=== PATIENT | female | born 1985 | race Caucasian/White ===

== ENCOUNTER → 2019-05-04 | Outpatient (CLI) | payer BC ==
[2019-05-04 16:30] VITALS: BP 131/84; PULSE 90; RESP 16; TEMP 99; BMI 46.0
--- NOTE | 2019-05-04 17:32 | P.HPBAR ---
Bariatric H&P - History & Physicial H&P Date: 05/04/19 History & Physicial: Visit/CC: Initial Patient initial contact: Initial weight: 117.934 kg Initial weight in pounds: 260.00 Height: 5 ft 3 in Initial BMI: 46.0 Last weight: Current weight: 117.934 kg Current weight in pounds: 260.00 Current BMI: 46.0 [place] body weight (based on NIH guidelines): 52.163 kg Excess body weight loss: 0.0% The patient is a 34 year-old F who presents for Bariatric Assessment. She is looking into the sleeve gastrectomy. She has family history of family morbid obesity. Her highest weight is present. She has tried [employer], [place], advocare, plexus, [employer], [employer], [employer] [place]. Most weight loss 50 pounds from weight watchers. She has been dieting from High school. She did idealu. She lost 30 pounds. She spent $1500 pounds. Start tracking foods. She reports lower back and hip pain. She has ankle and knee pain. She is not on blood pressure medications. She has minimal gastroesophageal reflux disease. She still has her gallbladder. No stomach cancer. No esophageal cancer. No history of blood clots. Dad had blood clots DVT in arm. She has easy bruising. She does not take a MVI daily. No chronic diarrhea. Her sister had gallbladder problems. She has right shoulder pain. She has troubles with eating lettuce. No food allergies. PLAN: 1. She needs 7 months. Past Medical History History of Any Multi-Drug Resistant Organisms: None Reported Past Surgical History: Section Additional Past Surgical History / Comment(s): x3 2011, 2013,20 17) Past Anesthesia/Blood Transfusion Reactions: Motion Sickness, Postoperative Nausea & Vomiting (PONV) Smoking Status: Never smoker - Past Family History Father Family Medical History: Hyperlipidemia, Hypertension Mother Family Medical History: No Reported History Surgical - Exam Vital Signs Temp Pulse Resp BP 99 F 90 16 131/84 05/04/19 16:27 05/04/19 16:27 05/04/19 16:27 05/04/19 16:27 Bariatric Checklist Checklist: Plan: Checklist: EGD: 1. Hiatal hernia: 2. H. Pylori: HgbA1c: Vitamin D: Smoking: Never smoker Primary care physician referral: N/A Psychiatry clearance: Cardiology clearance: Sleep study: Diet journal: VTE risk score: VTE risk level: Rehab needs at discharge:
== END | disposition home or self-care (01) ==
LOC: BARWHC3 15:45 → EDBD 16:00 → EDAGE 16:00
PROVIDERS: ATTEND Surgery Plastic and Reconstructive Surgery
DX: E66.01 Morbid (severe) obesity due to excess calories (principal); K21.9 Gastro-esophageal reflux disease without esophagitis; M25.559 Pain in unspecified hip; M54.5 Low back pain; M25.579 Pain in unspecified ankle and joints of unspecified foot; M25.569 Pain in unspecified knee; M25.511 Pain in right shoulder; Z68.42 Body mass index [BMI] 45.0-49.9, adult; Z83.49 Family history of other endocrine, nutritional and metabolic diseases
CPT/HCPCS: 99201

== ENCOUNTER → 2019-05-23 | Day surgery (SDC) | payer BC ==
[2019-05-19 15:24] VITALS: BMI 46.0
[~2019-05-23] MED LIST: LACTATED RINGERS 1,000 ML IV SCH; PROPOFOL 10 MG/ML 20 ML VIAL IV ONE
--- NOTE | 2019-05-23 07:33 | P.GSHP ---
History of Present Illness H&P Date: 05/23/19 CHIEF COMPLAINT: GERD HISTORY OF PRESENT ILLNESS: The patient is a 34-year-old female who presents reports gastroesophageal reflux disease. Upper endoscopy was offered for further evaluation and management. PAST MEDICAL HISTORY: Please see list. PAST SURGICAL HISTORY: Please see list. MEDICATIONS: Please see list. ALLERGIES: Please see list. SOCIAL HISTORY: No illicit drug use FAMILY HISTORY: No reports of Crohn disease or ulcerative colitis. REVIEW OF ORGAN SYSTEMS: CONSTITUTIONAL: No reports of fevers or chills. GI: Denies any blood in stools or constipation. PHYSICAL EXAM: VITAL SIGNS: Stable GENERAL: Well-developed and pleasant in no acute distress. HEENT: No scleral icterus. Extraocular movements grossly intact. Moist buccal mucosa. NECK: Supple without lymphadenopathy. CHEST: Unlabored respirations. Equal bilateral excursions. CARDIOVASCULAR: Regular rate and rhythm. Distal 2+ pulses. ABDOMEN: Soft, nondistended. MUSCULOSKELETAL: No clubbing, cyanosis, or edema. ASSESSMENT: 1. Gastroesophageal reflux disease PLAN: 1. Recommend proceeding with an upper endoscopy Past Medical History Past Medical History: No Reported History History of Any Multi-Drug Resistant Organisms: None Reported Past Surgical History: Section Additional Past Surgical History / Comment(s): x3 2011, 2013,2017 Past Anesthesia/Blood Transfusion Reactions: Motion Sickness, Postoperative Nausea & Vomiting (PONV) Smoking Status: Never smoker - Past Family History Father Family Medical History: Hyperlipidemia, Hypertension Mother Family Medical History: No Reported History Medications and Allergies Home Medications Medication Instructions Recorded Confirmed Type Vitamin C(Unknown Dose) 1 tab PO DAILY 05/19/19 05/19/19 History buPROPion [Wellbutrin] 100 mg PO BID 05/19/19 05/19/19 History Allergies Allergy/AdvReac Type Severity Reaction Status Date / Time Penicillins Allergy Rash/Hives Verified 05/19/19 15:19 Sulfa (Sulfonamide Allergy Rash/Hives Verified 05/19/19 15:19 Antibiotics)
[2019-05-23 07:46] VITALS: TEMP 98.4
[2019-05-23 08:11] VITALS: RESP 16
[2019-05-23 08:25] VITALS: BP 112/64; PULSE 76
--- NOTE | 2019-05-26 09:28 | P.PCN ---
Date of Procedure: 05/23/19 Description of Procedure: PREOPERATIVE DIAGNOSIS: Gastroesophageal reflux disease. Morbid obesity. POSTOPERATIVE DIAGNOSIS: Morbid obesity. Gastritis. Gastroesophageal reflux disease. OPERATION: Esophagogastroduodenoscopy with biopsies along antrum. SURGEON: Kristie Kothari MD ANESTHESIA: MAC. INDICATIONS: The patient is a 34-year-old female who presents with a history of reflux disease. Benefits and risks of the procedure were described. Informed consent was obtained. DESCRIPTION: The patient was brought into the endoscopy suite and laid in the left lateral decubitus position. An Olympus gastroscope was passed along the posterior oropharynx down to the distal esophagus where the squamocolumnar junction was encountered at 36 cm from the incisors. The stomach was entered and no bile reflux was found. Additional findings are listed below. Biopsies with cold forceps were obtained of the antrum. The first through third portion of the duodenum was examined and unremarkable. Retroflexion of the scope confirmed Hill grade 2 lower esophageal valve. The squamocolumnar junction demonstrated LA grade A erosive esophagitis. The stomach was desufflated. The patient tolerated the procedure well. FINDINGS: Squamocolumnar junction 36 cm from the incisors. Diaphragmatic hiatus at 36 cm. Hill grade 2 lower esophageal valve. LA grade A erosive esophagitis. No active duodenitis. Chronic gastritis RECOMMENDATIONS: Upper endoscopy as needed. Plan - Discharge Summary Discharge Rx Participant: No New Discharge Prescriptions: Continue buPROPion [Wellbutrin] 100 mg PO BID Discharge Medication List buPROPion [Wellbutrin] 100 mg PO BID 05/19/19 [History] Follow up Appointment(s)/Referral(s): Kristie Kothari MD [STAFF PHYSICIAN] - 06/08/19 Patient Instructions/Handouts: *[facility] - (Anesthesia) Endoscopy Discharge Instructions, Gastritis (DC), Upper Endoscopy (DC) Discharge Disposition: HOME SELF-CARE
== END | disposition home or self-care (01) ==
LOC: ORWHC2ENDO 07:11
PROVIDERS: ATTEND Surgery Plastic and Reconstructive Surgery
DX: K29.50 Unspecified chronic gastritis without bleeding (principal); K21.0 Gastro-esophageal reflux disease with esophagitis; K22.10 Ulcer of esophagus without bleeding; F41.9 Anxiety disorder, unspecified; F32.9 Major depressive disorder, single episode, unspecified; E66.01 Morbid (severe) obesity due to excess calories; Z88.0 Allergy status to penicillin; Z88.2 Allergy status to sulfonamides; Z79.899 Other long term (current) drug therapy; Z68.42 Body mass index [BMI] 45.0-49.9, adult; Z82.49 Family history of ischemic heart disease and other diseases of the circulatory system
CPT/HCPCS: 81025; 88305; 88342; 43239; J2704

== ENCOUNTER → 2019-05-23 | Outpatient (CLI) | payer BC ==
[2019-05-23 09:27] LABS: HCT 45.2 % (34.0-46.0); HGB 14.8 gm/dL (11.4-16.0); MCH 28.3 pg (25.0-35.0); MCHC 32.7 g/dL (31.0-37.0); MCV 86.5 fL (80.0-100.0); Mean Platelet Volume 10.7; Platelet Count 177 k/uL (150-450); RBC 5.23 m/uL (3.80-5.40)
[2019-05-23 09:43] LABS: Partial Thromboplastin Time 24.6 sec (22.0-30.0); Prothrombin Time 10.1 sec (9.0-12.0)
[2019-05-23 18:01] LABS: % Iron Saturation 15.92 (12.00-45.00); African American GFR (CKD) 95.3 (60.0-200.0); Albumin 4.3 g/dL (3.80-4.90); Albumin/Globulin Ratio 1.95 (1.60-3.17); Anion Gap 7.3 mmol/L (4.00-12.00); BUN/Creat Ratio 15.56 Ratio (12.00-20.00); Calcium 9.3 mg/dL (8.7-10.3); Carbon Dioxide 25.7 mmol/L (21.6-31.8); Chol/HDL Ratio 3.66; Globulin 2.2 g/dL (1.6-3.3); LDL Cholesterol,Calculated 98.4 mg/dL (0.0-131.0); Magnesium 1.9 mg/dL (1.5-2.4); Non-African American GFR(CKD) 82.3 (60.0-200.0); Phosphorus 2.9 mg/dL (2.4-5.1); Potassium 4.5 mmol/L (3.5-5.5); Total Bilirubin 0.3 mg/dL (0.3-1.2); Total Protein 6.5 g/dL (6.2-8.2); VLDL Calculation 18.6 mg/dL (5.00-40.00)
[2019-05-23 18:10] LABS: Ferritin 79.4 ng/mL (10.0-291.0)
[2019-05-23 18:17] LABS: Folate, Serum 12.8 ng/mL
[2019-05-23 19:06] LABS: Hemoglobin A1C 4.9 % (4.0-6.0)
[2019-05-24 14:13] LABS: Zinc, Serum 86 ug/dL (60-130)
[2019-05-25 06:19] LABS: Vitamin A 37 ug/dL (38-106)
[2019-05-25 06:55] LABS: Vit B1(Thiamine) 69 ug/L (38-122)
[2019-05-25 23:51] LABS: Selenium 99 mcg/L (63-160)
== END | disposition home or self-care (01) ==
LOC: LABWHC1 08:52
PROVIDERS: ATTEND Surgery Plastic and Reconstructive Surgery
DX: E21.1 Secondary hyperparathyroidism, not elsewhere classified (principal); N19 Unspecified kidney failure; K74.1 Hepatic sclerosis; E89.1 Postprocedural hypoinsulinemia; K90.9 Intestinal malabsorption, unspecified; K50.90 Crohn's disease, unspecified, without complications; D50.9 Iron deficiency anemia, unspecified; E66.01 Morbid (severe) obesity due to excess calories; E44.0 Moderate protein-calorie malnutrition; E55.9 Vitamin D deficiency, unspecified; Z51.81 Encounter for therapeutic drug level monitoring
CPT/HCPCS: 36415; 80053; 80061; 82306; 82525; 82607; 82728; 82746; 83036; 83540; 83550; 83735; 83970; 84100; 84134; 84255; 84425; 84443; 84590; 84630; 85027; 85610; 85730; 93005

== ENCOUNTER → 2019-06-15 | Outpatient (CLI) | payer BC ==
[2019-06-15 14:16] VITALS: BP 124/76; PULSE 95; RESP 18; TEMP 98.2; BMI 45.8
--- NOTE | 2019-06-15 14:19 | P.PN ---
Subjective Progress Note Date: 06/15/19 DATE OF SERVICE: 06/15/2019 CHIEF COMPLAINT: Morbid obesity HISTORY OF PRESENT ILLNESS: Mone Odell is a 34 year old female who presents with life long morbid obesity. She is looking into the sleeve gastrectomy. She has osteoarthritis of the hips, knees, and lower back. She is enrolled in medical supervised weight loss. She has completed upper endoscopy. At height of 5 feet 3 inches, her ideal body weight is 140 pounds. She comes in 258 pounds from 259 pounds. Her body mass index was 46.1 now 45.9. She is 118 pounds overweight. PAST MEDICAL HISTORY: 1. Morbid obesity due to excess calories 2. Body mass index of 46.1, initial 3. Osteoarthritis of the hip 4. Osteoarthritis of the lower back. 5. Osteoarthritis of the knee 6. Depressive disorder PAST SURGICAL HISTORY: 1. HOME MEDICATIONS: Home Medications Medication Instructions Recorded Confirmed buPROPion [Wellbutrin] 100 mg PO BID 05/19/19 06/15/19 Mv-Min/Folic/Vit [id number] 1 each PO DAILY 06/15/19 06/15/19 [Alive Women's 50 Plus Tablet] ALLERGIES: Allergies Allergy/AdvReac Type Severity Reaction Status Date / Time Penicillins Allergy Rash/Hives Verified 06/15/19 14:11 Sulfa (Sulfonamide Allergy Rash/Hives Verified 06/15/19 14:11 Antibiotics) SOCIAL HISTORY: No current tobacco use. FAMILY HISTORY: No family history of ulcerative colitis disease or Crohn's disease. Family history of morbid obesity. No lupus in the family. No reports of stomach or esophageal cancer. DVTs in father. REVIEW OF ORGAN SYSTEMS: CONSTITUTIONAL: At height of 5 feet 3 inches, her ideal body weight is 140 pounds. She comes in 259 pounds. Her body mass index is 46.1. She is 119 pounds overweight. HEENT: Denies any active troubles with vision or hearing. No troubles with swallowing. ENDOCRINE: No diabetes. No hypothyroidism. CARDIOVASCULAR: No past reports of palpitations or heart attacks or chest pain. RESPIRATORY: Denies daytime somnolence. Denies asthma. GASTROINTESTINAL: Denies any bright red blood per rectum. Occasional diarrhea. No constipation. MUSCULOSKELETAL: Has lower back pain and joint pain. Has osteoarthritis of the knees. NEURO: No headaches. No seizure disorders. PSYCH: Has depression. No suicidal ideation. RHEUMATOLOGIC: No lupus. No rheumatoid arthritis. HEMATOLOGIC: Denies any abnormal bleeding. Has easy bruising. No personal history of DVTs. SKIN: No rash. No skin cancer. PHYSICAL EXAM: VITAL SIGNS: Height 5 foot 3 inches, weight 258 pounds. BMI 45.9 Vital Signs Temp 98.2 F 06/15/19 14:13 Pulse 95 06/15/19 14:13 Resp 18 06/15/19 14:13 BP 124/76 06/15/19 14:13 Pulse Ox GENERAL: Well-developed in no acute distress. HEENT: No scleral icterus. Extraocular movements grossly intact. Hears conversational speech. No nasal drainage. NECK: Supple without lymphadenopathy. CHEST: Nonlabored respirations with equal bilateral excursions. CARDIOVASCULAR: Regular rate and regular rhythm. Distal 2+ pulses. ABDOMEN: Obese, soft, nontender, nondistended. MUSCULOSKELETAL: No clubbing, cyanosis. NEURO: No focal or lateralizing signs. Cranial nerves 2 through 12 grossly within normal limits. PSYCH: Appropriate affect. Alert and oriented to person, place and time. SKIN: Good skin turgor. Well perfused. LABS: All labs reviewed. Vitamin A is low, Vitamin D is low EKG: Normal sinus rhythm EGD FINDINGS: Squamocolumnar junction 36 cm from the incisors. Diaphragmatic hiatus at 36 cm. Hill grade 2 lower esophageal valve. LA grade A erosive esophagitis. No active duodenitis. Chronic gastritis Final Pathologic Diagnosis GASTRIC ANTRUM, BIOPSY: Chronic gastritis with focal active gastritis. An appropriately controlled immunohistochemical study for Helicobacter pylori is negative for microorganisms. ASSESSMENT: 1. Morbid obesity due to excess calories 2. Body mass index of 46.1, initial 3. Osteoarthritis of the hip 4. Osteoarthritis of the lower back. 5. Osteoarthritis of the knee 6. Depressive disorder 7. Vitamin A deficiency 8. Vitamin D deficiency 9. Chronic gastritis PLAN: 1. She is looking into the sleeve gastrectomy 2. She is pending PCP letter 3. Recommend Vit A and D supplement 4. Recommend dietary visit through OctoberNovember 2019 reviewed. 5. Will need completion of supervised weight loss Objective - Vital Signs Vital signs: Vital Signs Temp 98.2 F 06/15/19 14:13 Pulse 95 03/04/20 14:13 Resp 18 06/15/19 14:13 BP 124/76 06/15/19 14:13 Pulse Ox Intake & Output 06/14/19 06/15/19 06/15/19 18:59 06:59 18:59 Weight 117.48 kg
== END | disposition home or self-care (01) ==
LOC: BARWHC3 13:02
PROVIDERS: ATTEND Surgery Plastic and Reconstructive Surgery
DX: E66.01 Morbid (severe) obesity due to excess calories (principal); Z68.42 Body mass index [BMI] 45.0-49.9, adult; M16.0 Bilateral primary osteoarthritis of hip; M47.816 Spondylosis without myelopathy or radiculopathy, lumbar region; M17.0 Bilateral primary osteoarthritis of knee; F32.9 Major depressive disorder, single episode, unspecified; Z82.49 Family history of ischemic heart disease and other diseases of the circulatory system; K29.50 Unspecified chronic gastritis without bleeding; K22.10 Ulcer of esophagus without bleeding; E55.9 Vitamin D deficiency, unspecified; E50.9 Vitamin A deficiency, unspecified; Z98.890 Other specified postprocedural states; Z79.899 Other long term (current) drug therapy; Z88.0 Allergy status to penicillin; Z88.2 Allergy status to sulfonamides
CPT/HCPCS: 99211

== ENCOUNTER → 2019-10-03 | Outpatient (CLI) | payer BC ==
[2019-10-03 13:04] VITALS: BMI 46.3
== END | disposition home or self-care (01) ==
LOC: BARWHC3 08:33
PROVIDERS: ATTEND Surgery Plastic and Reconstructive Surgery
DX: E66.01 Morbid (severe) obesity due to excess calories (principal); Z71.3 Dietary counseling and surveillance; Z68.42 Body mass index [BMI] 45.0-49.9, adult
CPT/HCPCS: 97804

== ENCOUNTER → 2019-11-02 | Outpatient (CLI) | payer BC ==
[2019-11-02 14:27] VITALS: BP 125/79; PULSE 77; RESP 16; TEMP 98.9; BMI 46.0
[2019-11-02 15:02] LABS: Basophils % (A) 0 %; Eosinophils # (A) 0.1 k/uL (0-0.7); Eosinophils % (A) 1 %; HCT 44.1 % (34.0-46.0); HGB 14.4 gm/dL (11.4-16.0); Lymphocytes # (A) 2.2 k/uL (1.0-4.8); Lymphocytes % (A) 25 %; MCH 28.3 pg (25.0-35.0); MCHC 32.7 g/dL (31.0-37.0); MCV 86.5 fL (80.0-100.0); Mean Platelet Volume 10.1; Monocytes # (A) 0.4 k/uL (0-1.0); Monocytes % (A) 5 %; Neutrophils % (A) 68 %; Platelet Count 183 k/uL (150-450); RDW 13.1 % (11.5-15.5); WBC 8.8 k/uL (3.8-10.6)
--- NOTE | 2019-11-02 15:16 | P.HPBAR ---
Bariatric H&P - History & Physicial H&P Date: 11/02/19 History & Physicial: Visit/CC: pre-surg/sleeve Patient initial contact: Initial weight: 117.934 kg Initial weight in pounds: 260.00 Height: 5 ft 3 in Initial BMI: 46.0 Last weight: Current weight: 117.934 kg Current weight in pounds: 260.00 Current BMI: 46.0 [place] body weight (based on NIH guidelines): 52.163 kg Excess body weight loss: 0.0% The patient is a 34 year-old F who presents for Bariatric Assessment. DATE OF SERVICE: 11/02/2019 CHIEF COMPLAINT: Morbid obesity HISTORY OF PRESENT ILLNESS: Mone Odell is a 34 year old female who presents with life long morbid obesity. As a result of her morbid obesity, she has developed osteoarthritis of the hips, knees, and lower back. She has completed medical supervised weight loss including medical risk assessment and psychological assessment. She is looking into the sleeve gastrectomy. At height of 5 feet 3 inches, her ideal body weight is 140 pounds. Her highest weight is 259 pounds, BMI 46.1. She comes in 259 pounds form 258 pounds, 4 months ago. She has gained 1 pound in 4 months. Her body mass index is 46.1. She is 119 pounds overweight. PAST MEDICAL HISTORY: 1. Morbid obesity due to excess calories 2. Body mass index of 46.1, initial 3. Osteoarthritis of the hip 4. Osteoarthritis of the lower back. 5. Osteoarthritis of the knee 6. Depressive disorder PAST SURGICAL HISTORY: 1. HOME MEDICATIONS: Home Medications Medication Instructions Recorded Confirmed buPROPion [Wellbutrin] 100 mg PO BID 05/19/19 06/15/19 Mv-Min/Folic/Vit [id number]/[id number] 1 each PO DAILY 06/15/19 06/15/19 [Alive Women's 50 Plus Tablet] ALLERGIES: Allergies Allergy/AdvReac Type Severity Reaction Status Date / Time Penicillins Allergy Rash/Hives Verified 06/15/19 14:11 Sulfa (Sulfonamide Allergy Rash/Hives Verified 06/15/19 14:11 Antibiotics) SOCIAL HISTORY: No current tobacco use. FAMILY HISTORY: No family history of ulcerative colitis disease or Crohn's disease. Family history of morbid obesity. No lupus in the family. No reports of stomach or esophageal cancer. DVTs in father. REVIEW OF ORGAN SYSTEMS: CONSTITUTIONAL: At height of 5 feet 3 inches, her ideal body weight is 140 pounds. She comes in 259 pounds. Her body mass index is 46.1. She is 119 pounds overweight. HEENT: Denies any active troubles with vision or hearing. No troubles with swallowing. ENDOCRINE: No diabetes. No hypothyroidism. CARDIOVASCULAR: No past reports of palpitations or heart attacks or chest pain. RESPIRATORY: Denies daytime somnolence. Denies asthma. GASTROINTESTINAL: Denies any bright red blood per rectum. Occasional diarrhea. No constipation. MUSCULOSKELETAL: Has lower back pain and joint pain. Has osteoarthritis of the knees. NEURO: No headaches. No seizure disorders. PSYCH: Has depression. No suicidal ideation. RHEUMATOLOGIC: No lupus. No rheumatoid arthritis. HEMATOLOGIC: Denies any abnormal bleeding. Has easy bruising. No personal history of DVTs. SKIN: No rash. No skin cancer. PHYSICAL EXAM: VITAL SIGNS: Height 5 foot 3 inches, weight 259 pounds. BMI 46.1 Vital Signs Temp 98.9 F 11/02/19 14:24 Pulse 77 11/02/19 14:24 Resp 16 11/02/19 14:24 BP 125/79 11/02/19 14:24 Pulse Ox GENERAL: Well-developed in no acute distress. HEENT: No scleral icterus. Extraocular movements grossly intact. Hears conversational speech. No nasal drainage. NECK: Supple without lymphadenopathy. CHEST: Nonlabored respirations with equal bilateral excursions. CARDIOVASCULAR: Regular rate and regular rhythm. Distal 2+ pulses. ABDOMEN: Obese, soft, nontender, nondistended. MUSCULOSKELETAL: No clubbing, cyanosis. NEURO: No focal or lateralizing signs. Cranial nerves 2 through 12 grossly within normal limits. PSYCH: Appropriate affect. Alert and oriented to person, place and time. SKIN: Good skin turgor. Well perfused. ASSESSMENT: 1. Morbid obesity due to excess calories 2. Body mass index of 46.1, initial 3. Osteoarthritis of the hip 4. Osteoarthritis of the lower back. 5. Osteoarthritis of the knee 6. Depressive disorder 7. Vitamin A deficiency 8. Vitamin D deficiency 9. Chronic gastritis PLAN: 1. Bariatric options between a sleeve, band and a Jaelyn-en-Y gastric bypass were reviewed in detail. The patient elected for a sleeve gastrectomy. Robotic assisted approach described. 2. The [place] [facility] Data was also reviewed with benefits and risks as described. 3. An 8 page second-generation bariatric consent form was reviewed in detail including potential of bleeding, infection, leaks, adequate weight loss, nutritional deficiencies which the patient demonstrated understanding of the risks. 4. A 2 week high-protein low caloric 800 kcal diet described to address hepatomegaly. 5. Preoperative labs including complete metabolic panel and CBC with type and screen recommended. 6. DVT prophylaxis per [place] [facility]. 7. Antibiotic prophylaxis. 8. Inpatient hospitalization anticipated for more than 2 nights. 9. All questions and concerns were addressed with the patient. 10. She is at elevated risk for perioperative complications due to pre-existing chronic gastritis. 11. Overall, patient has expressed understanding of bariatric care including postoperative diet and commitment of lifestyle. Patient should benefit from surgical intervention for correction of her morbid obesity. Past Medical History Past Medical History: No Reported History History of Any Multi-Drug Resistant Organisms: None Reported Past Surgical History: Section Additional Past Surgical History / Comment(s): x3 2011, 2013,2016 Past Anesthesia/Blood Transfusion Reactions: Motion Sickness, Postoperative Nausea & Vomiting (PONV) Smoking Status: Unknown if ever smoked Past Alcohol Use History: None Reported Past Drug Use History: None Reported - Past Family History Father Family Medical History: Hyperlipidemia, Hypertension Mother Family Medical History: No Reported History Surgical - Exam Vital Signs Temp Pulse Resp BP 98.9 F 77 16 125/79 11/02/19 14:24 11/02/19 14:24 11/02/19 14:24 11/02/19 14:24 Results - Labs 11/02/19 14:37 11/02/19 14:37 Bariatric Checklist Checklist: Plan: Checklist: EGD: 1. Hiatal hernia: 2. H. Pylori: HgbA1c: Vitamin D: Smoking: Never smoker Primary care physician referral: N/A Psychiatry clearance: Cardiology clearance: Sleep study: Diet journal: VTE risk score: VTE risk level: Rehab needs at discharge:
[2019-11-02 20:06] LABS: African American GFR (CKD) 109.9 (60.0-200.0); Albumin 4.4 g/dL (3.80-4.90); Albumin/Globulin Ratio 1.69 (1.60-3.17); Anion Gap 7.8 mmol/L (4.00-12.00); BUN/Creat Ratio 22.5 Ratio (12.00-20.00); Calcium 9.5 mg/dL (8.7-10.3); Carbon Dioxide 25.2 mmol/L (21.6-31.8); Globulin 2.6 g/dL (1.6-3.3); Non-African American GFR(CKD) 94.8 (60.0-200.0); Potassium 4.1 mmol/L (3.5-5.5); Total Bilirubin 0.4 mg/dL (0.2-1.2)
== END | disposition home or self-care (01) ==
LOC: BARWHC3 14:03
PROVIDERS: ATTEND Surgery Plastic and Reconstructive Surgery
DX: Z01.818 Encounter for other preprocedural examination (principal)
CPT/HCPCS: 36415; 80053; 85025; 93005; 99211

== ENCOUNTER 2019-11-14 09:30 | Inpatient (IN) | payer BC ==
--- NOTE | 2019-11-13 18:47 | P.GSHP ---
History of Present Illness H&P Date: 11/14/19 CHIEF COMPLAINT: Morbid obesity HISTORY OF PRESENT ILLNESS: Mone Odell is a 34 year old female who presents with life long morbid obesity. She is looking into the sleeve gastrectomy. She has osteoarthritis of the hips, knees, and lower back. She completed medical supervised weight loss. She has completed upper endoscopy. At height of 5 feet 3 inches, her ideal body weight is 140 pounds. She comes in 254 pounds from 258 pounds, 5 months ago. Her body mass index was 46.1 now 45.2. She is 114 pounds overweight. PAST MEDICAL HISTORY: 1. Morbid obesity due to excess calories 2. Body mass index of 46.1, initial 3. Osteoarthritis of the hip 4. Osteoarthritis of the lower back. 5. Osteoarthritis of the knee 6. Depressive disorder PAST SURGICAL HISTORY: 1. HOME MEDICATIONS: Home Medications Medication Instructions Recorded Confirmed buPROPion [Wellbutrin] 100 mg PO BID 05/19/19 06/15/19 Mv-Min/Folic/Vit [id number]/[id number] 1 each PO DAILY 06/15/19 06/15/19 [Alive Women's 50 Plus Tablet] ALLERGIES: Allergies Allergy/AdvReac Type Severity Reaction Status Date / Time Penicillins Allergy Rash/Hives Verified 06/15/19 14:11 Sulfa (Sulfonamide Allergy Rash/Hives Verified 06/15/19 14:11 Antibiotics) SOCIAL HISTORY: No current tobacco use. FAMILY HISTORY: No family history of ulcerative colitis disease or Crohn's disease. Family history of morbid obesity. No lupus in the family. No reports of stomach or esophageal cancer. DVTs in father. REVIEW OF ORGAN SYSTEMS: CONSTITUTIONAL: At height of 5 feet 3 inches, her ideal body weight is 140 pounds. She comes in 259 pounds. Her body mass index is 46.1. She is 119 jad nds overweight. HEENT: Denies any active troubles with vision or hearing. No troubles with swallowing. ENDOCRINE: No diabetes. No hypothyroidism. CARDIOVASCULAR: No past reports of palpitations or heart attacks or chest pain. RESPIRATORY: Denies daytime somnolence. Denies asthma. GASTROINTESTINAL: Denies any bright red blood per rectum. Occasional diarrhea. No constipation. MUSCULOSKELETAL: Has lower back pain and joint pain. Has osteoarthritis of the knees. NEURO: No headaches. No seizure disorders. PSYCH: Has depression. No suicidal ideation. RHEUMATOLOGIC: No lupus. No rheumatoid arthritis. HEMATOLOGIC: Denies any abnormal bleeding. Has easy bruising. No personal history of DVTs. SKIN: No rash. No skin cancer. PHYSICAL EXAM: VITAL SIGNS: Height 5 foot 3 inches, weight 254 pounds. BMI 45.2 GENERAL: Well-developed in no acute distress. HEENT: No scleral icterus. Extraocular movements grossly intact. Hears conversational speech. No nasal drainage. NECK: Supple without lymphadenopathy. CHEST: Nonlabored respirations with equal bilateral excursions. CARDIOVASCULAR: Regular rate and regular rhythm. Distal 2+ pulses. ABDOMEN: Obese, soft, nontender, nondistended. MUSCULOSKELETAL: No clubbing, cyanosis. NEURO: No focal or lateralizing signs. Cranial nerves 2 through 12 grossly within normal limits. PSYCH: Appropriate affect. Alert and oriented to person, place and time. SKIN: Good skin turgor. Well perfused. LABS: All labs reviewed. Vitamin A is low, Vitamin D is low EKG: Normal sinus rhythm EGD FINDINGS: Squamocolumnar junction 36 cm from the incisors. Diaphragmatic hiatus at 36 cm. Hill grade 2 lower esophageal valve. LA grade A erosive esophagitis. No active duodenitis. Chronic gastritis Final Pathologic Diagnosis GASTRIC ANTRUM, BIOPSY: Chronic gastritis with focal active gastritis. An appropriately controlled immunohistochemical study for Helicobacter pylori is negative for microorganisms. ASSESSMENT: 1. Morbid obesity due to excess calories 2. Body mass index of 46.1, initial 3. Osteoarthritis of the hip 4. Osteoarthritis of the lower back. 5. Osteoarthritis of the knee 6. Depressive disorder 7. Vitamin A deficiency 8. Vitamin D deficiency 9. Chronic gastritis PLAN: 1. Bariatric options between a sleeve, band and a Jaelyn-en-Y gastric bypass were reviewed in detail. The patient elected for a sleeve gastrectomy. Robotic assisted approach described. 2. The [place] [facility] Data was also reviewed with benefits and risks as described. 3. An 8 page second-generation bariatric consent form was reviewed in detail including potential of bleeding, infection, leaks, adequate weight loss, nutritional deficiencies which the patient demonstrated understanding of the risks. 4. A 2 week high-protein low caloric 800 kcal diet described to address hepatomegaly. 5. Preoperative labs including complete metabolic panel and CBC with type and screen recommended. 6. DVT prophylaxis per [place] [facility]. 7. Antibiotic prophylaxis. 8. Inpatient hospitalization anticipated for more than 2 nights. 9. All questions and concerns were addressed with the patient. Past Medical History Past Medical History: No Reported History Additional Past Medical History / Comment(s): BMI 45.2, PT STATES HIGH PROTEIN SHAKE DIET PER DR KAY. History of Any Multi-Drug Resistant Organisms: None Reported Past Surgical History: Section, Uterine Ablation Additional Past Surgical History / Comment(s): x3 2011, 2013,2017 Past Anesthesia/Blood Transfusion Reactions: Motion Sickness, Postoperative Nausea & Vomiting (PONV) Past Psychological History: Anxiety, Depression Smoking Status: Never smoker Past Alcohol Use History: Rare Past Drug Use History: None Reported - Past Family History Father Family Medical History: Cancer, Hyperlipidemia, Hypertension Additional Family Medical History / Comment(s): SKIN CANCER Mother Family Medical History: No Reported History Medications and Allergies Home Medications Medication Instructions Recorded Confirmed Type Cholecalciferol [Vitamin D3 (25 10,000 unit PO DAILY 11/07/19 11/07/19 History Mcg = 1000 Iu)] Multivit with Calcium,Iron,Min 1 each PO DAILY 11/07/19 11/07/19 History [Women's Multivitamin] Venlafaxine HCl [Effexor] 75 mg PO DAILY 11/07/19 11/07/19 History Vitamin A Acetate [Vitamin A] 10,000 unit PO DAILY 11/07/19 11/07/19 History Allergies Allergy/AdvReac Type Severity Reaction Status Date / Time Penicillins Allergy Rash/Hives Verified 11/07/19 15:00 Sulfa (Sulfonamide Allergy Rash/Hives Verified 11/07/19 15:00 Antibiotics)
[~2019-11-14 09:30] MED LIST changes: +ACETAMINOPHEN IV (For NPO) 1,000 MG in EMPTY BAG 1 BAG IVPB ONE; +CHLORHEXIDINE GLUCONATE 15 ML CUP MUCOUS MEM ONE; +DEXAMETHASONE SOD PHOSPHATE 10 MG/ML 1 ML VIAL IV ONE; +ENOXAPARIN 40 MG/0.4 ML SYRINGE SQ STA; +HYDROmorphone 0.5 MG/0.5 ML SYRINGE IVP PRN; -LACTATED RINGERS 1,000 ML IV SCH; +LIDOCAINE 1% (10MG/ML) FOR IV START INTRADERMA PRN; +ONDANSETRON 4 MG/2 ML VIAL IVP ONE; +PANTOPRAZOLE 40 MG/10 ML VIAL IV STA; -PROPOFOL 10 MG/ML 20 ML VIAL IV ONE; +SCOPOLAMINE 1.5MG/72HR PATCH TRANSDERM STA
[2019-11-14] MEDS ORDERED: ONDANSETRON 4 MG/2 ML VIAL ONE (10:20)
[2019-11-14] MEDS: LACTATED RINGERS 1,000 ML IV SCH (10:43)
[2019-11-14] MEDS ORDERED: LIDOCAINE 1% INJ 10MG/ML (20 ML MDV) ONE (10:52)
[2019-11-14] MEDS ORDERED: MIDAZOLAM 2 MG/2 ML VIAL ONE (10:52)
[2019-11-14] MEDS ORDERED: ROCURONIUM BROMIDE 10 MG/ML 5 ML VIAL IV ONE (10:52)
[2019-11-14] MEDS ORDERED: PROPOFOL 10 MG/ML 20 ML VIAL IV ONE (10:52)
[2019-11-14] MEDS ORDERED: fentaNYL (PF) 50 MCG/ML 2 ML AMP ONE (10:52)
[2019-11-14] MEDS ORDERED: NEOSTIGMINE 1 MG/ML 10 ML VIAL ONE (10:52)
[2019-11-14] MEDS ORDERED: GLYCOPYRROLATE 0.2 MG/ML 2 ML VIAL ONE (10:52)
[2019-11-14] MEDS ORDERED: SUCCINYLCHOLINE CHLORIDE 100 MG/5 ML SYR IV ONE (10:52)
[2019-11-14] MEDS ORDERED: LACTATED RINGERS 1,000 ML IV ONE (11:21)
[2019-11-14] MEDS ORDERED: LIDOCAINE 1%-EPI 1:100,000 20 ML VIAL SQ ONE (11:22)
[2019-11-14] MEDS ORDERED: ONDANSETRON 4 MG/2 ML VIAL IVP ONE (12:55)
--- NOTE | 2019-11-14 13:03 | P.OP ---
Date of Procedure: 11/14/19 Description of Procedure: SURGEON: ROSHAN KAY MD PREOPERATIVE DIAGNOSES: 1. Morbid obesity due to excess calories 2. Body mass index of 46.1, initial 3. Osteoarthritis of the hip 4. Osteoarthritis of the lower back. 5. Osteoarthritis of the knee 6. Depressive disorder 7. Vitamin A deficiency 8. Vitamin D deficiency 9. Chronic gastritis POSTOPERATIVE DIAGNOSES: 1. Morbid obesity due to excess calories 2. Body mass index of 46.1, initial 3. Osteoarthritis of the hip 4. Osteoarthritis of the lower back. 5. Osteoarthritis of the knee 6. Depressive disorder 7. Vitamin A deficiency 8. Vitamin D deficiency 9. Chronic gastritis 10. Peritoneal adhesions, pelvis OPERATION: 1. Robotic assisted daVinci Xi laparoscopic sleeve gastrectomy with 40-Uruguayan bougie, multiport. 2. Intraoperative esophagogastroduodenoscopy. ANESTHESIA: Gen. local anesthetic ESTIMATED BLOOD LOSS: 20 mL SPECIMENS REMOVED: Sleeve gastrectomy COMPLICATIONS: None. INDICATIONS: Mone Odell is a 34 year old female who presents with life long morbid obesity. She is looking into the sleeve gastrectomy. She has osteoarthritis of the hips, knees, and lower back. She completed medical supervised weight loss. At height of 5 feet 3 inches, her ideal body weight is 140 pounds. She comes in 250 pounds from 254 pounds, 1 month ago. Her body mass index was 46.1 now 44.3. She is 110 pounds overweight. She comes in for sleeve gastrectomy. All surgical options for morbid obesity had been described using the [place] bariatric surgery collaborative comorbidity resolution including complication risk score. A second-generation bariatric consent form was described in detail including the possibility of protein malnutrition, leaks, gastric stricture, venous thrombosis, gastroesophageal reflux disease, need for further surgery for which she demonstrated understanding. Benefits and risks of the procedure were described at length. Informed consent was obtained. DESCRIPTION: The patient was brought into the operating room theater. Preoperatively she had received Lovenox subcutaneously for DVT prophylaxis. Additionally she had Peridex oral solution as an oral decontaminant. After general induction, the abdomen was prepped and draped in standard sterile fashion. An Ioban draping was placed along the abdomen. A robotic da Myranda Xi system was prepped and primed. At 12 cm from the xiphoid, proposed port sites were marked with indelible marker along the anterior axillary line bilaterally, mid axillary line bilaterally with each ports were marked 10 to 15 cm from each other. The assistant broker port was marked along the left lateral abdominal wall. The robotic stapler port was marked for the right midclavicular line. A 5 mm 0 degrees laparoscopic trocar entry was performed along the left upper quadrant. The abdomen was insufflated to 15 mmHg pressure was tolerated well. Diagnostic laparoscopy demonstrated no injury to bowel, viscera, or mesentery. No evidence of large hiatus hernia was identified. Moderate pelvic adhesions from previous was identified. The liver edge was sharp consistent with 2 week low-carb high-protein diet. The ports were readjusted at 12 cm from the xiphoid to avoid additional adhesions. A 8 mm port was placed along the left upper abdominal wall after exchanging the 5 mm port. A separate 8 mm port was placed along the left lateral abdominal wall. Please note that the ports were placed at least 20 cm away from the target anatomy. Care was taken to check each robotic arms were safely away from collision with the bed or the patient. At the epigastrium, a medium sized Sun liver retractor was placed under di rect visualization with the [employer] placed under the right shoulder of the patient. Next, 12-mm robot stapler port was placed along the right upper quadrant. The camera 8-mm port was maintained along the epigastrium. The patient was repositioned in reverse Trendelenburg position at 21-degrees after lowering the bed. The robot was docked along the left side of the patient. Using a grasper for arm 4, a vessel sealer for arm 3, including grasper for arm 1, the robotic system was docked and primed as described. Instruments were interchanged by the assistant broker for stapler loads. The camera wa s placed at 30-degrees down. I had sat at the console. The pylorus was identified and 6 cm proximally along the greater curvature of the stomach, the short gastrics were mobilized upwards to the angle of His using a vessel sealer. Hemostasis was excellent during this portion of the procedure. Next, the upper pole of the stomach was adherent to the left nisha, which was gently dissected free using atraumatic grasper. I went to the head of the bed and placed 40-Uruguayan blunt bougie into the stomach. The bougie was readjusted by the nurse ssis architect. Robotic stapler green load 60 mm 2 followed by blue 60 mm x 4 loads were used to create the sleeve. Initial firing was across the antrum of the stomach towards the angle of His. The staple line was linear without corkscrewing. The space from the angularis incisura of the sleeve was approximately 4 cm. I then went to the head of the bed to perform the intraoperative esophagogastroduodenoscopy leak test. The bougie was withdrawn. The upper pole of the stomach was bathed using normal saline solution. The scope was withdrawn with careful inspection along the staple line for which no leaks were found along the entire length. Additionally,the sleeve was completely hemostatic without any encroachment along the angularis incisura. Its topology was a soft "J". No stricture was encountered upon placement of the scope. The GI tract was desufflated. The patient tolerated this portion of the procedure well. The scope was completely withdrawn. The robot was undocked. I then rescrubbed into case, whereby the irrigation fluid was aspirated from the abdominal cavity. Tisseel fibrin sealant was placed along the entire staple length. Once dried the Sun liver retractor was removed. Attention was now brought to removal of the specimen. The distal end of the sleeve gastrectomy specimen was brought out through the 12 mm port at the left upper quadrant. The specimen was gently removed en total. No contamination had occurred during this process. All instruments and pneumoperitoneum including irrigation fluid was removed from the abdominal cavity. The 12 mm port site was closed using 0-Vicryl and Peter Davis and irrigated with diluted hydrogen peroxide. The final incisions were closed using subcuticular interrupted suture of 4-0 Monocryl. Exofin was applied to the skin once the skin had been cleansed. OptiFoam dressing was placed along the stomach extraction site. The sleeve specimen was measured and checked also for leaks which none were found. At the end of the procedure, needle, sponge, and instrument count was verified correct by the rn neurosurgical. The patient was taken to the postanesthesia care unit in stable condition. She had tolerated the procedure well. Intraoperative films and findings were reviewed with the patient's family. FINDINGS: 1. Negative intraoperative esophagogastrojejunoscopy leak test. 2. No hepatomegaly and no large hiatus hernia. 3. Total of 6 staplers used including 2 - 60 mm green robot stefanie and 4 - 60 mm blue robot loads used to create the gastric sleeve. 4. Sleeve gastrectomy, 26 x 4.5 cm Plan - Discharge Summary Discharge Rx Participant: Yes New Discharge Prescriptions: No Action Cholecalciferol [Vitamin D3 (25 Mcg = 1000 Iu)] 10,000 unit PO DAILY Venlafaxine HCl [Effexor] 75 mg PO DAILY Vitamin A Acetate [Vitamin A] 10,000 unit PO DAILY Multivit with Calcium,Iron,Min [Women's Multivitamin] 1 each PO DAILY Discharge Medication List Cholecalciferol [Vitamin D3 (25 Mcg = 1000 Iu)] 10,000 unit PO DAILY 11/07/19 [History] Multivit with Calcium,Iron,Min [Women's Multivitamin] 1 each PO DAILY 11/07/19 [History] Venlafaxine HCl [Effexor] 75 mg PO DAILY 11/07/19 [History] Vitamin A Acetate [Vitamin A] 10,000 unit PO DAILY 11/07/19 [History]
[2019-11-14] MEDS ORDERED: NALOXONE 0.4 MG/ML 1 ML VIAL IV PRN (13:06)
[2019-11-14] MEDS ORDERED: diphenhydrAMINE 50 MG/ML 1 ML VIAL IVP PRN (13:06)
[2019-11-14] MEDS ORDERED: HYDROmorphone 1 MG/ML 1 ML SYRINGE IVP PRN (13:06)
[2019-11-14] MEDS ORDERED: ACETAMINOPHEN IV (For NPO) 1,000 MG in EMPTY BAG 1 BAG IVPB ONE (13:06)
[2019-11-14] MEDS ORDERED: DEXAMETHASONE SOD PHOSPHATE 10 MG/ML 1 ML VIAL IV PRN (13:09)
[2019-11-14] MEDS ORDERED: PROMETHAZINE INJ 25 MG/ML 1 ML VIAL IVPB ONE (13:09)
[2019-11-14] MEDS ORDERED: SODIUM CHLORIDE 0.9% 1,000 ML IV ONE ×3 (13:10→13:24)
[2019-11-14] MEDS: ALBUTEROL NEBULIZED 2.5 MG/3 ML INHALATION SCH ×2 (16:46→19:32)
[2019-11-14] MEDS: HYOSCYAMINE ORAL DROPS 1.875 MG/15 ML BOTTLE PO SCH ×2 (17:05→23:03)
[2019-11-14] MEDS: DEXAMETHASONE SOD PHOSPHATE 4 MG/ML 1 ML VIAL IV SCH ×2 (17:05→23:02)
[2019-11-14] MEDS: 0.9% NACL WITH KCL 20 MEQ/L 1,000 ML IV SCH ×2 (17:05→23:03)
[2019-11-14] MEDS: SIMETHICONE 40 MG/0.6 ML DROPS 2,000 MG/30 ML BOTTLE PO SCH ×2 (17:05→23:04)
[2019-11-14] MEDS: KETOROLAC 30 MG/ML 1 ML VIAL IVP SCH ×2 (17:05→23:02)
[2019-11-14] MEDS: ONDANSETRON 4 MG/2 ML VIAL IVP SCH ×2 (17:06→23:03)
[2019-11-15] MEDS: LACTATED RINGERS 1,000 ML IV SCH (00:11)
[2019-11-15 02:27] VITALS: RESP 18
[2019-11-15] MEDS: ONDANSETRON 4 MG/2 ML VIAL IVP SCH ×2 (05:05→11:11)
[2019-11-15] MEDS: 0.9% NACL WITH KCL 20 MEQ/L 1,000 ML IV SCH (05:05)
[2019-11-15] MEDS: KETOROLAC 30 MG/ML 1 ML VIAL IVP SCH ×2 (05:05→11:15)
[2019-11-15] MEDS: SIMETHICONE 40 MG/0.6 ML DROPS 2,000 MG/30 ML BOTTLE PO SCH ×2 (05:05→11:16)
[2019-11-15] MEDS: DEXAMETHASONE SOD PHOSPHATE 4 MG/ML 1 ML VIAL IV SCH ×2 (05:05→11:13)
[2019-11-15] MEDS: HYOSCYAMINE ORAL DROPS 1.875 MG/15 ML BOTTLE PO SCH ×2 (05:06→11:17)
[2019-11-15 07:26] VITALS: BP 113/73; PULSE 82; TEMP 99.3
[2019-11-15] MEDS ORDERED: 1: MVI, ADULT NO.4 WITH VIT K 10 ML, THIAMINE 100 MG, FOLIC ACID 1 MG, POTASSIUM CHLORID IV SCH ×6 (08:00)
[2019-11-15 08:10] LABS: Basophils % (A) 0 %; Eosinophils % (A) 0 %; HCT 43.1 % (34.0-46.0); HGB 13.5 gm/dL (11.4-16.0); Lymphocytes % (A) 7 %; MCH 27.3 pg (25.0-35.0); MCHC 31.3 g/dL (31.0-37.0); MCV 87.1 fL (80.0-100.0); Mean Platelet Volume 10.9; Monocytes # (A) 0.4 k/uL (0-1.0); Monocytes % (A) 3 %; Neutrophils # (A) 11.8 k/uL (1.3-7.7); Neutrophils % (A) 89 %; Platelet Count 166 k/uL (150-450); RBC 4.95 m/uL (3.80-5.40); RDW 13.5 % (11.5-15.5); WBC 13.3 k/uL (3.8-10.6)
[2019-11-15] MEDS: ALBUTEROL NEBULIZED 2.5 MG/3 ML INHALATION SCH ×2 (08:20→12:10)
[2019-11-15 08:42] LABS: African American GFR (CKD) >90 (>60 ml/min/1.73 sqM); Anion Gap 10 mmol/L; Blood Urea Nitrogen 5 mg/dL (7-17); Calcium 8.4 mg/dL (8.4-10.2); Carbon Dioxide 21 mmol/L (22-30); Chloride 107 mmol/L (98-107); Non-African American GFR(CKD) >90 (>60 ml/min/1.73 sqM); Phosphorus 1.9 mg/dL (2.5-4.5); Potassium 4.5 mmol/L (3.5-5.1); Sodium 138 mmol/L (137-145)
[2019-11-15] MEDS ORDERED: VENLAFAXINE HCL 75 MG TAB PO SCH (09:00)
[2019-11-15] MEDS ORDERED: ENOXAPARIN 40 MG/0.4 ML SYRINGE SQ SCH (09:00)
[2019-11-15] MEDS ORDERED: PANTOPRAZOLE 40 MG/10 ML VIAL IV SCH (09:00)
[2019-11-15] MEDS: SODIUM CHLORIDE 0.9% 1,000 ML IV SCH ×2 (10:35→11:37)
[2019-11-15] MEDS ORDERED: ACETAMINOPHEN ORAL SUSP (PEDS) 3,840 MG/120 ML BOTTLE PO SCH (11:00)
--- NOTE | 2019-11-15 13:24 | P.DS ---
<Yarelis Fontanez - Last Filed: 11/15/19 13:22> Providers Expected date of discharge: 11/15/19 Hospital Course: 34-year-old female who underwent robotic-assisted laparoscopic sleeve gastrectomy with Dr. Kothari on 11/14/2019. Patient is doing well postoperatively without any immediate complications. She is tolerating liquid diet without nausea or vomiting. Pain is controlled on oral medications. Vital signs are stable. She is stable for discharge home today. Please see EMR for further hospital course details. Discharge diagnosis 1. Morbid obesity due to excess calories 2. Body mass index of 46.1, initial 3. Osteoarthritis of the hip 4. Osteoarthritis of the lower back. 5. Osteoarthritis of the knee 6. Depressive disorder 7. Vitamin A deficiency 8. Vitamin D deficiency 9. Chronic gastritis 10. Peritoneal adhesions, pelvis Nurse practitioner note has been reviewed by physician. Signing provider agrees with the documented findings, assessment, and plan of care. Patient Condition at Discharge: Stable Plan - Discharge Summary Discharge Rx Participant: Yes New Discharge Prescriptions: New bisacodyL [Dulcolax] 5 mg PO DAILY PRN #10 tablet. PRN Reason: Constipation Simethicone 40 mg/0.6 ml Drops [Mylicon Drops] 40 mg PO PCHS PRN #30 ml PRN Reason: Gas Omeprazole [PriLOSEC] 40 mg PO DAILY #30 capsule. Ondansetron Odt [Zofran Odt] 4 mg PO Q8HR PRN #9 tab PRN Reason: Nausea Acetaminophen Oral Susp [Tylenol Oral Susp] 500 mg PO Q4-6H PRN #400 ml PRN Reason: Pain Continue Venlafaxine HCl [Effexor] 75 mg PO DAILY Discontinued Cholecalciferol [Vitamin D3 (25 Mcg = 1000 Iu)] 10,000 unit PO DAILY Vitamin A Acetate [Vitamin A] 10,000 unit PO DAILY Multivit with Calcium,Iron,Min [Women's Multivitamin] 1 each PO DAILY Discharge Medication List Venlafaxine HCl [Effexor] 75 mg PO DAILY 11/07/19 [History] Acetaminophen Oral Susp [Tylenol Oral Susp] 500 mg PO Q4-6H PRN #400 ml 11/14/19 [Rx] Omeprazole [PriLOSEC] 40 mg PO DAILY #30 capsule. 11/14/19 [Rx] Ondansetron Odt [Zofran Odt] 4 mg PO Q8HR PRN #9 tab 11/14/19 [Rx] Simethicone 40 mg/0.6 ml Drops [Mylicon Drops] 40 mg PO PCHS PRN #30 ml 11/14/19 [Rx] bisacodyL [Dulcolax] 5 mg PO DAILY PRN #10 tablet. 11/14/19 [Rx] Follow up Appointment(s)/Referral(s): [place], [place] [NON-STAFF] - 11/18/19 10:00 am Patient Instructions/Handouts: Nutrition after Bariatric Surgery (DC), Laparoscopic Sleeve Gastrectomy (DC) Activity/Diet/Wound Care/Special Instructions: NO lifting over 4 pounds in 4 weeks, Dec 14. August shower. Dressings to be removed by your doctor in the office. Drink 64 oz of fluid daily. Start protein shakes on . Notify bariatric center for temp over 101.0, increased pain, drainage from incisions. No straws or carbonated beverages. Liquid diet only. Sugar content should be less than 6 g to avoid dumping syndrome. Take MOM for constipation. CRUSH, OPEN, OR CUT TABLETS LARGER THAN A SIZE OF A TIC TAC Discharge Disposition: HOME SELF-CARE <Kristie Kothari - Last Filed: 11/16/19 23:57> Providers Date of admission: 11/14/19 09:38 Attending physician: Kristie Kothari Primary care physician: Sweetie Rudd - Discharge Diagnosis(es) (1) S/P laparoscopic sleeve gastrectomy Status: Acute (2) Morbid obesity with BMI of 40.0-44.9, adult Status: Acute Hospital Course: As above, patient seen and evaluated. No reports of nausea and vomiting this morning. She completed her esophagram without presence of leak or obstruction which I personally reviewed. Patient to follow up in the bariatric center within 2-3 days of discharge. Dietary guidelines for bariatric surgery reviewed.
--- NOTE | 2019-11-15 14:33 | FL ---
EXAMINATION TYPE: FL UGI DATE OF EXAM: 11/15/2019 CLINICAL HISTORY: Status post gastric sleeve Contrast: Omnipaque 350 50 mL POST GASTRIC SLEEVE. 18 SEC FLUORO TIME. 2 OUNCES OF ISOVUE [address] EDWARDS. The patient ingested contrast without difficulty or delay. Noted are postsurgical changes of gastric sleeve. There is no evidence for leak or obstruction. Contrast is noted within the duodenum. IMPRESSION: Post-surgical change of gastric sleeve without evidence for obstruction or leak at this point in time.
[2019-11-16] MEDS ORDERED: bisacodyL 5 MG TABLET.DR PO PRN (08:00)
[2019-11-16 10:00] VITALS: BMI 44.3
== END 2019-11-15 14:57 | disposition home or self-care (01) | DRG 621 ==
LOC: EDSTATUS 09:30 → 2ORMAIN 09:38 → 4SSUR 15:32
PROVIDERS: ADMIT Surgery Plastic and Reconstructive Surgery; ATTEND Surgery Plastic and Reconstructive Surgery
PROC: 0DB64Z3 Excision of Stomach, Percutaneous Endoscopic Approach, Vertical (ICD-10-PCS; principal; 2019-11-14 10:55)
PROC: 0DJ08ZZ Inspection of Upper Intestinal Tract, Via Natural or Artificial Opening Endoscopic (ICD-10-PCS; principal; 2019-11-14 10:55)
PROC: 8E0W4CZ Robotic Assisted Procedure of Trunk Region, Percutaneous Endoscopic Approach (ICD-10-PCS; principal; 2019-11-14 10:55)
DX: E66.01 Morbid (severe) obesity due to excess calories (principal); Z68.42 Body mass index [BMI] 45.0-49.9, adult; E50.9 Vitamin A deficiency, unspecified; E55.9 Vitamin D deficiency, unspecified; F32.9 Major depressive disorder, single episode, unspecified; K29.50 Unspecified chronic gastritis without bleeding; M47.9 Spondylosis, unspecified; K66.0 Peritoneal adhesions (postprocedural) (postinfection); M16.0 Bilateral primary osteoarthritis of hip; M17.0 Bilateral primary osteoarthritis of knee; F41.9 Anxiety disorder, unspecified; Z79.899 Other long term (current) drug therapy; Z88.0 Allergy status to penicillin; Z88.2 Allergy status to sulfonamides; Z80.0 Family history of malignant neoplasm of digestive organs; Z84.89 Family history of other specified conditions; Z98.891 History of uterine scar from previous surgery; Z98.890 Other specified postprocedural states; Z82.49 Family history of ischemic heart disease and other diseases of the circulatory system; Z80.8 Family history of malignant neoplasm of other organs or systems; Z83.438 Family history of other disorder of lipoprotein metabolism and other lipidemia; Z80.9 Family history of malignant neoplasm, unspecified
CPT/HCPCS: 74240; 80051; 81025; 82310; 82565; 83735; 84100; 84520; 85025; 86850; 86900; 86901; 88307; 94640; 94760; 94762

== ENCOUNTER → 2020-02-15 | Outpatient (CLI) | payer BC ==
[2020-02-15 13:48] VITALS: BP 135/77; PULSE 78; RESP 16; TEMP 99.1; BMI 40.4
--- NOTE | 2020-02-15 14:36 | P.PN ---
Subjective Progress Note Date: 02/15/20 DATE OF SERVICE: 02/15/2020 CHIEF COMPLAINT: Status post sleeve gastrectomy HISTORY OF PRESENT ILLNESS: Mone Odell is a 34 year old female status post sleeve gastrectomy, 11/14/2019. She is 3 months out. She is on protein shakes on occasion. No reports of gastroesophageal reflux disease. At height of 5 feet 3 inches, her ideal body weight is 140 pounds. Highest 259 pounds, BMI 46.0. She comes in 228 pounds from 239 pounds, 2 months ago. She has lost 12 pounds, 2 months. Her body mass index is down to 40.4. Lifetime weight loss of 31 pounds. Percent excess weight loss of 26 %. She is 88 pounds overweight. PHYSICAL EXAM: VITAL SIGNS: Height 5 foot 3 inches, weight 228 pounds. BMI 40.4 Vital Signs Temp 99.1 F 02/15/20 13:46 Pulse 78 02/15/20 13:46 Resp 16 02/15/20 13:46 BP 135/77 02/15/20 13:46 Pulse Ox GENERAL: Well-developed in no acute distress. HEENT: No scleral icterus. Extraocular movements grossly intact. Hears conversational speech. No nasal drainage. NECK: Supple without lymphadenopathy. CHEST: Nonlabored respirations with equal bilateral excursions. CARDIOVASCULAR: Regular rate and regular rhythm. Distal 2+ pulses. ABDOMEN: Non-tender. Non-distended MUSCULOSKELETAL: No clubbing, cyanosis. NEURO: No focal or lateralizing signs. Cranial nerves 2 through 12 grossly within normal limits. PSYCH: Appropriate affect. Alert and oriented to person, place and time. SKIN: Good skin turgor. Well perfused. LABS: ASSESSMENT: 1. Morbid obesity due to excess calories 2. Body mass index of 46.1 to 42.5 3. Osteoarthritis of the hip 4. Osteoarthritis of the lower back. 5. Osteoarthritis of the knee 6. Depressive disorder 7. Vitamin A deficiency 8. Vitamin D deficiency 9. Chronic gastritis 10. Status post sleeve gastrectomy PLAN: 1. Recommend strict dietary follow-up. Objective - Vital Signs Vital signs: Vital Signs Temp 99.1 F 02/15/20 13:46 Pulse 78 02/15/20 13:46 Resp 16 02/15/20 13:46 BP 135/77 02/15/20 13:46 Pulse Ox Intake & Output 02/14/20 02/15/20 02/15/20 18:59 06:59 18:59 Weight 103.419 kg
== END | disposition home or self-care (01) ==
LOC: BARWHC3 13:31
PROVIDERS: ATTEND Surgery Plastic and Reconstructive Surgery
DX: E66.01 Morbid (severe) obesity due to excess calories (principal); M16.10 Unilateral primary osteoarthritis, unspecified hip; M47.9 Spondylosis, unspecified; F32.9 Major depressive disorder, single episode, unspecified; E50.9 Vitamin A deficiency, unspecified; E55.9 Vitamin D deficiency, unspecified; K29.50 Unspecified chronic gastritis without bleeding; Z98.84 Bariatric surgery status; Z68.41 Body mass index [BMI] 40.0-44.9, adult
CPT/HCPCS: 97803; 99211

== ENCOUNTER → 2020-04-20 | Outpatient (CLI) | payer BC ==
[2020-04-20 14:14] LABS: HCT 43.6 % (34.0-46.0); HGB 14.8 gm/dL (11.4-16.0); MCH 29.4 pg (25.0-35.0); MCHC 33.9 g/dL (31.0-37.0); MCV 86.6 fL (80.0-100.0); Mean Platelet Volume 10.3; Platelet Count 175 k/uL (150-450); RBC 5.03 m/uL (3.80-5.40); WBC 8.1 k/uL (3.8-10.6)
[2020-04-20 20:18] LABS: % Iron Saturation 19.33 (12.00-45.00); African American GFR (CKD) 94.7 (60.0-200.0); Albumin 4.4 g/dL (3.80-4.90); Anion Gap 6.8 mmol/L (4.00-12.00); BUN/Creat Ratio 17.78 Ratio (12.00-20.00); Calcium 9.3 mg/dL (8.7-10.3); Carbon Dioxide 26.2 mmol/L (21.6-31.8); Chol/HDL Ratio 3.42; Globulin 2.2 g/dL (1.6-3.3); LDL Cholesterol,Calculated 104.2 mg/dL (0.0-131.0); Magnesium 2.1 mg/dL (1.5-2.4); Non-African American GFR(CKD) 81.7 (60.0-200.0); Total Bilirubin 0.4 mg/dL (0.3-1.2); Total Protein 6.6 g/dL (6.2-8.2); VLDL Calculation 16.8 mg/dL (5.00-40.00)
[2020-04-20 20:28] LABS: Ferritin 90.6 ng/mL (10.0-291.0); Folate, Serum 14.8 ng/mL
[2020-04-21 00:28] LABS: INR 0.99 (0.90-1.11); Partial Thromboplastin Time 28.9 sec (23.5-31.0); Prothrombin Time 10.7 sec (9.9-11.9)
[2020-04-23 10:55] LABS: Selenium 119 mcg/L (63-160)
[2020-04-23 14:55] LABS: Zinc, Serum 89 ug/dL (60-130)
[2020-04-24 07:10] LABS: Vitamin A 38 ug/dL (38-106)
[2020-04-24 07:15] LABS: Vit B1(Thiamine) 67 ug/L (38-122)
== END | disposition home or self-care (01) ==
LOC: LABWHC1 11:36
PROVIDERS: ATTEND Surgery Plastic and Reconstructive Surgery
DX: E89.1 Postprocedural hypoinsulinemia (principal); E66.01 Morbid (severe) obesity due to excess calories; D50.8 Other iron deficiency anemias; E55.9 Vitamin D deficiency, unspecified; N19 Unspecified kidney failure; K90.89 Other intestinal malabsorption; K74.1 Hepatic sclerosis; K50.90 Crohn's disease, unspecified, without complications
CPT/HCPCS: 36415; 80053; 80061; 82306; 82525; 82607; 82728; 82746; 83036; 83540; 83550; 83735; 83970; 84100; 84134; 84255; 84425; 84443; 84590; 84630; 85027; 85610; 85730

== ENCOUNTER → 2020-05-30 | Outpatient (CLI) | payer BC ==
[2020-05-30 14:34] VITALS: BP 139/85; PULSE 80; RESP 18; TEMP 98.2; BMI 39.3
--- NOTE | 2020-05-30 15:03 | P.PN ---
Subjective Progress Note Date: 05/30/20 DATE OF SERVICE: 05/30/2020 CHIEF COMPLAINT: Status post sleeve gastrectomy HISTORY OF PRESENT ILLNESS: Mone Odell is a 35 year old female status post sleeve gastrectomy, 11/14/2019. She is over 6 months out. She has had of multiple family members and has affected her weight loss. She has slowed weight loss. She denies abdominal pain. She denies gastroesophageal reflux disease. She wants to exercise more. She comes in regarding difficulty with weight loss. At height of 5 feet 3 inches, her ideal body weight is 140 pounds. Highest 259 pounds, BMI 46.1. She comes in 222 pounds from 228 pounds, 3 months ago. She has lost 6 pounds, 3 months. Her body mass index is down to 39.3. Lifetime weight loss of 37 pounds. Percent excess weight loss of 31 %. She is 82 pounds overweight. PAST MEDICAL HISTORY: 1. Morbid obesity due to excess calories 2. Body mass index of 46.1, initial 3. Osteoarthritis of the hip 4. Osteoarthritis of the lower back. 5. Osteoarthritis of the knee 6. Depressive disorder PAST SURGICAL HISTORY: 1. 2. Status post sleeve gastrectomy HOME MEDICATIONS: Home Medications Medication Instructions Recorded Confirmed buPROPion [Wellbutrin] 100 mg PO BID 05/19/19 06/15/19 Mv-Min/Folic/Vit K/Lut/[id number] 1 each PO DAILY 06/15/19 06/15/19 [Alive Women's 50 Plus Tablet] ALLERGIES: Allergies Allergy/AdvReac Type Severity Reaction Status Date / Time Penicillins Allergy Rash/Hives Verified 06/15/19 14:11 Sulfa (Sulfonamide Allergy Rash/Hives Verified 06/15/19 14:11 Antibiotics) SOCIAL HISTORY: No current tobacco use. FAMILY HISTORY: No family history of ulcerative colitis disease or Crohn's dise ase. Family history of morbid obesity. No lupus in the family. No reports of stomach or esophageal cancer. DVTs in father. REVIEW OF ORGAN SYSTEMS: CONSTITUTIONAL: At height of 5 feet 3 inches, her ideal body weight is 140 pounds. She comes in 259 pounds. Her body mass index is 46.1. HEENT: Denies any active troubles with vision or hearing. No troubles with swallowing. ENDOCRINE: No diabetes. No hypothyroidism. CARDIOVASCULAR: No past reports of palpitations or heart attacks or chest pain. RESPIRATORY: Denies daytime somnolence. Denies asthma. GASTROINTESTINAL: Denies any bright red blood per rectum. Occasional diarrhea. No constipation. MUSCULOSKELETAL: Has lower back pain and joint pain. Has osteoarthritis of the knees. NEURO: No headaches. No seizure disorders. PSYCH: Has depression. No suicidal ideation. RHEUMATOLOGIC: No lupus. No rheumatoid arthritis. HEMATOLOGIC: Denies any abnormal bleeding. Has easy bruising. No personal history of DVTs. SKIN: No rash. No skin cancer. PHYSICAL EXAM: VITAL SIGNS: Height 5 foot 3 inches, weight 222 pounds. BMI 39.3 Vital Signs Temp 98.2 F 05/30/20 14:31 Pulse 80 05/30/20 14:31 Resp 18 05/30/20 14:31 BP 139/85 05/30/20 14:31 Pulse Ox GENERAL: Well-developed in no acute distress. HEENT: No scleral icterus. Extraocular movements grossly intact. Hears conversational speech. No nasal drainage. NECK: Supple without lymphadenopathy. CHEST: Nonlabored respirations with equal bilateral excursions. CARDIOVASCULAR: Regular rate and regular rhythm. Distal 2+ pulses. ABDOMEN: Non-tender. Non-distended MUSCULOSKELETAL: No clubbing, cyanosis. NEURO: No focal or lateralizing signs. Cranial nerves 2 through 12 grossly within normal limits. PSYCH: Appropriate affect. Alert and oriented to person, place and time. SKIN: Good skin turgor. Well perfused. LABS: Reviewed. Vitamin D is low. Vitamin A within normal limits. ASSESSMENT: 1. Morbid obesity due to excess calories 2. Body mass index of 46.1 to 39.3 3. Osteoarthritis of the hip 4. Osteoarthritis of the lower back. 5. Osteoarthritis of the knee 6. Depressive disorder 7. Vitamin A deficiency, resolved 8. Vitamin D deficiency 9. Chronic gastritis 10. Status post sleeve gastrectomy PLAN: 1. Recommend 2 week protein diet 2. Bariatric blood were reviewed. 3. Recommend increase physical activity such as going to the gym. 4. Goal heart rate 80s to determine also reviewed over 50 bpm for maximum efficient exercise. 5. Vitamin D 50,000 units weekly prescribed. Objective - Vital Signs Vital signs: Vital Signs Temp 98.2 F 05/30/20 14:31 Pulse 80 05/30/20 14:31 Resp 18 05/30/20 14:31 BP 139/85 05/30/20 14:31 Pulse Ox Intake & Output 05/29/20 05/30/20 05/30/20 18:59 06:59 18:59 Weight 100.698 kg
== END | disposition home or self-care (01) ==
LOC: BARWHC3 13:51
PROVIDERS: ATTEND Surgery Plastic and Reconstructive Surgery
DX: Z48.815 Encounter for surgical aftercare following surgery on the digestive system (principal); Z98.84 Bariatric surgery status; Z79.899 Other long term (current) drug therapy; Z88.0 Allergy status to penicillin; Z88.2 Allergy status to sulfonamides; E66.01 Morbid (severe) obesity due to excess calories; Z68.39 Body mass index [BMI] 39.0-39.9, adult; Z71.3 Dietary counseling and surveillance; M47.9 Spondylosis, unspecified; M17.0 Bilateral primary osteoarthritis of knee; F32.9 Major depressive disorder, single episode, unspecified; E55.9 Vitamin D deficiency, unspecified; K29.50 Unspecified chronic gastritis without bleeding
CPT/HCPCS: 97803; 99211

== ENCOUNTER → 2020-09-26 | Outpatient (CLI) | payer BC ==
--- NOTE | 2020-09-26 16:33 | P.PN ---
Subjective Progress Note Date: 09/26/20 Patient left without being seen.
== END ==
LOC: BARWHC3 14:49
PROVIDERS: ATTEND Surgery Plastic and Reconstructive Surgery
DX: Z53.21 Procedure and treatment not carried out due to patient leaving prior to being seen by health care provider (principal)